=== PATIENT | female | born 1950 | race Caucasian/White ===

== ENCOUNTER → 2019-04-03 | Outpatient (REF) | payer MEDICARE | LOC: M LAB LCGH 11:50 | PROVIDERS: ATTEND Physician Assistant | DX: D48.5 Neoplasm of uncertain behavior of skin (principal) ==

== ENCOUNTER → 2023-01-19 | Outpatient (REF) | payer MEDICARE, BC | LOC: M SFHCDERM 18:09 | PROVIDERS: ATTEND Physician Assistant | DX: L57.0 Actinic keratosis (principal); L98.8 Other specified disorders of the skin and subcutaneous tissue ==

== ENCOUNTER → 2023-07-24 | Outpatient (REF) | payer MEDICARE | LOC: M SFHCDERM 09:37 | PROVIDERS: ATTEND Physician Assistant | DX: D22.9 Melanocytic nevi, unspecified (principal) ==